=== PATIENT | female | born 1975 | race Caucasian/White ===

== ENCOUNTER 2016-08-16 16:03 | Emergency (ER) | payer BC, OTHER ==
[~2016-08-16] VITALS: Ht 157.5 cm; Wt 65.0 kg
[~2016-08-16 16:03] MED LIST: CYCL10TA6 PO; INDO-22 PO; LORA-741 PO; MULT-884 PO; NRN/100 PO
[2016-08-16 16:06] VITALS: TEMP 37; Ht 157.5 cm; Wt 65.0 kg
[2016-08-16] MEDS ORDERED: SODIUM CHLORIDE 0.9% 1000ML 1,000 ML IV STA (17:17)
[2016-08-16 17:20] VITALS: O2SAT 100
[2016-08-16 17:28] LABS: HEMATOCRIT 40.4 % (37-47); MEAN CELL VOLUME 85.8 fL (80-100); MEAN CORPUSCULAR HEMOGLOBIN 29.5 pg (25-34); MEAN CORPUSCULAR HGB CONC 34.4 g/dl (32-36); PLATELET COUNT 281 K/uL (130-400); RED BLOOD COUNT 4.71 M/uL (4.2-5.4)
[2016-08-16 17:33] LABS: INR 1.1 (0.9-1.1); PARTIAL THROMBOPLASTIN RATIO 1.2; PROTHROMBIN TIME (PATIENT) 11.3 SECONDS (9.0-12.0)
--- NOTE | 2016-08-16 17:33 | EMERGENCY ROOM VISIT NOTE ---
History Report prepared by Eliana: Graham Marvin Under the Supervision of: Dr. Shashi Carl D.O. First contact with patient: 17:08 Chief Complaint: CARDIAC ASSESSMENT Stated Complaint: CHEST TIGHTNESS INTO BACK, ARMS SORE Nursing Triage Summary: "I called the nurse line and was told to come to the ER. I have chest pain and throat discomfort, started approx 1-2 hours ago. I went to the walk in yesterday because of my throat yesterday." per pt. The chest pain comes and goes, none currently. History of Present Illness The patient is a 40 year old female who presents to the Emergency Room with complaints of persistent chest discomfort since yesterday afternoon. The patient complains of feeling lightheaded, weak and fatigued yesterday. She took a nap and when she woke up she complained of a headache and difficulty seeing out of her right eye. The chest discomfort worsened throughout the day and she went to bed trying to "sleep it off." When the patient woke up today, she notes that the chest discomfort was still there and worse. The patient also describes a discomfort in her shoulders that was radiating down both of her arms. She describes it as feeling like something that is stuck in her chest and feeling like pressure. Her symptoms were worsened with exertion and deep breathing. She also notes that when the discomfort was worsened, she felt the discomfort radiating to her back. The patient was put on antibiotics 5 days ago because she had cold-like symptoms for a few weeks. The patient also notes cramping in her legs, but denies pain or swelling at this time. Source of History: patient Onset: yesterday afternoon Position: chest Quality: pressure Timing: other (persistent) Modifying Factors (Worsening): exertion, breathing (deep breaths) Associated Symptoms: + back pain, + fatigue, + headache, + weakness Note: Other associated symptoms: lightheadedness, vision changes in right eye, discomfort in her shoulders radiating down her arms, cramping in legs Denies: pain or swelling in legs Review of Systems See HPI for pertinent positives & negatives. A total of 10 systems reviewed and were otherwise negative. Past Medical & Surgical Medical Problems: (1) Asthma, Unspecified (2) Esophageal Reflux (3) Migraine Surgical Problems: (1) H/O dilation and curettage Family History FH: diabetes mellitus FH: heart disease Social History Smoking Status: Never Smoker Alcohol Use: none Drug Use: none Marital Status: Housing Status: lives with family Current/Historical Medications Scheduled Amoxicillin (Amoxil), 500 MG PO TID Cyclobenzaprine HCl (Cyclobenzaprine HCl), 10 MG PO HS Multiple Vitamin (Multi Vitamin Daily), 1 TAB PO DAILY Scheduled PRN Lorazepam (Lorazepam), 0.5 MG PO Q8-12 HRS PRN for Anxiety Nitroglycerin (Nitrostat), 0.3 MG SL UD PRN for Chest Pain Allergies Coded Allergies: Sumatriptan (Verified Allergy, Mild, 04/05/14) Azithromycin (Verified Allergy, Unknown, cardiac, 04/05/14) Erythromycin (Verified Allergy, Unknown, 04/05/14) Serotonin (Unverified Allergy, Unknown, Uncoded allergy for "serotoninagonis", 04/05/14) Aspirin (Verified Adverse Reaction, Mild, UPSET STOMACH, 04/05/14) Cephalosporins (Verified Adverse Reaction, Mild, KEFLEX=VOMITING, HAS HAD AMOXICILLIN WITHOUT A PROBLEM, 04/05/14) Physical Exam Vital Signs Date Time Temp Pulse Resp B/P Pulse Ox O2 Delivery O2 Flow Rate FiO2 08/16/16 19:54 84 16 104/66 100 Room Air 08/16/16 18:57 87 16 113/68 100 Room Air 08/16/16 17:51 93 20 117/71 100 Room Air 08/16/16 17:20 100 Room Air 08/16/16 17:18 115 08/16/16 17:18 100 Room Air 08/16/16 16:06 37.0 140 20 121/80 99 Room Air Physical Exam GENERAL: Patient is awake alert in no acute distress patient is resting comfortably and showing no signs of anxiety EYES: The conjunctivae are clear. The pupils are round and reactive. EARS, NOSE, MOUTH AND THROAT: The nose is without any evidence of any deformity. Mucous membranes are moist tongue is midline NECK: The neck is nontender and supple. RESPIRATORY: Normal respiratory effort is noted there is no evidence of wheezing rhonchi or rales CARDIOVASCULAR: Heart sounds were tachycardic but regular. No definite murmurs appreciated. GASTROINTESTINAL: The abdomen is soft. Bowel sounds are present in all quadrants. Abdomen is nontender MUSCULOSKELETAL/EXTREMITIES: There is no evidence of gross deformity full range of motion is noted in the hips and shoulders SKIN: There is no obvious evidence of any rash. There are no petechiae, pallor or cyanosis noted. NEUROLOGIC: Patient is awake alert and oriented x3 strength is symmetric patellar reflexes are 2+ bilaterally Medical Decision & Procedures ER Provider Diagnostic Interpretation: Radiology results as stated below per my review and radiologist interpretation: CHEST ONE VIEW PORTABLE CLINICAL HISTORY: Respiratory distress. Dyspnea. COMPARISON STUDY: Chest radiograph January 02, 2016. FINDINGS: Lung volumes are normal. There is no pneumothorax or pleural effusion. Cardiac size is normal. Mediastinal contours are normal. There is no evidence of pulmonary edema. Interstitial prominence is unchanged. IMPRESSION: No acute cardiopulmonary findings. Electronically signed by: Erasmo Laws M.D. 08/16/2016 5:41 PM Dictated Date/Time: 08/16/2016 5:[address] ANGIOGRAPHY OF THE CHEST, PULMONARY EMBOLUS PROTOCOL CLINICAL HISTORY: Chest pain. Chest tightness radiating into back. COMPARISON STUDY: Chest CT May 19, 2010 and chest radiograph performed earlier today. TECHNIQUE: Following IV administration of 87 mL of Optiray-320, helical axial images of the chest were obtained utilizing the pulmonary embolus protocol. Maximal intensity projections and sagittal and coronal reformats were viewed on an independent 3D workstation. IV contrast was administered without complication. CT DOSE: 189.81 mGy.cm FINDINGS: No pulmonary emboli are identified. There is no evidence of thoracic aortic dissection. The size of the heart is normal. There is no pericardial effusion. There is a small hiatal hernia. No enlarged thoracic lymph nodes are present. There are no areas of consolidation to suggest pneumonia. Central airways are patent. No pneumothorax or pleural effusion is present. The bony thorax and upper abdomen are unremarkable. IMPRESSION: 1. No pulmonary emboli identified. 2. No acute intrathoracic findings. Electronically signed by: Erasmo Laws M.D. 08/16/2016 6:38 PM Dictated Date/Time: 08/16/2016 6:33 PM Laboratory Results 08/16/16 17:15 Red Blood Count 4.71, Mean Corpuscular Volume 85.8, Mean Corpuscular Hemoglobin 29.5, Mean Corpuscular Hemoglobin Concent 34.4, Mean Platelet Volume 9.0, Neutrophils (%) (Auto) 74.3, Lymphocytes (%) (Auto) 19.5, Monocytes (%) (Auto) 4.4, Eosinophils (%) (Auto) 1.3, Basophils (%) (Auto) 0.3, Neutrophils # (Auto) 6.99, Lymphocytes # (Auto) 1.83, Monocytes # (Auto) 0.41, Eosinophils # (Auto) 0.12, Basophils # (Auto) 0.03 08/16/16 17:15 Test 08/16/16 17:15 08/16/16 17:29 08/16/16 17:40 White Blood Count 9.40 K/uL (4.8-10.8) Red Blood Count 4.71 M/uL (4.2-5.4) Hemoglobin 13.9 g/dL (12.0-16.0) Hematocrit 40.4 % (37-47) Mean Corpuscular Volume 85.8 fL (80-100) Mean Corpuscular Hemoglobin 29.5 pg (25-34) Mean Corpuscular Hemoglobin Concent 34.4 g/dl (32-36) Platelet Count 281 K/uL (130-400) Mean Platelet Volume 9.0 fL (7.4-10.4) Neutrophils (%) (Auto) 74.3 % Lymphocytes (%) (Auto) 19.5 % Monocytes (%) (Auto) 4.4 % Eosinophils (%) (Auto) 1.3 % Basophils (%) (Auto) 0.3 % Neutrophils # (Auto) 6.99 K/uL (1.4-6.5) Lymphocytes # (Auto) 1.83 K/uL (1.2-3.4) Monocytes # (Auto) 0.41 K/uL (0.11-0.59) Eosinophils # (Auto) 0.12 K/uL (0-0.5) Basophils # (Auto) 0.03 K/uL (0-0.2) RDW Standard Deviation 37.1 fL (36.4-46.3) RDW Coefficient of Variation 11.9 % (11.5-14.5) Immature Granulocyte % (Auto) 0.2 % Immature Granulocyte # (Auto) 0.02 K/uL (0.00-0.02) Red Blood Cell Morphology Unremarkable Prothrombin Time 11.3 SECONDS (9.0-12.0) Prothromb Time International Ratio 1.1 (0.9-1.1) Activated Partial Thromboplast Time 30.3 SECONDS (21.0-31.0) Partial Thromboplastin Ratio 1.2 Anion Gap 7.0 mmol/L (3-11) Est Creatinine Clear Calc Drug Dose 113.3 ml/min Estimated GFR () 133.8 Estimated GFR (Non- 115.5 BUN/Creatinine Ratio 20.8 (10-20) Calcium Level 9.1 mg/dl (8.5-10.1) Total Bilirubin 0.4 mg/dl (0.2-1) Aspartate Amino Transf (AST/SGOT) 13 U/L (15-37) Alanine Aminotransferase (ALT/SGPT) 20 U/L (12-78) Alkaline Phosphatase 92 U/L (45-117) Total Creatine Kinase 78 U/L (26-192) Creatine Kinase MB < 0.5 ng/ml (0.5-3.6) Creatine Kinase MB Ratio (0-3.0) Troponin I < 0.015 ng/ml (0-0.045) Total Protein 8.3 gm/dl (6.4-8.2) Albumin 4.0 gm/dl (3.4-5.0) Globulin 4.3 gm/dl (2.5-4.0) Albumin/Globulin Ratio 0.9 (0.9-2) Human Chorionic Gonadotropin, Qual NEG (NEG) Bedside D-Dimer > 450 ng/mlFEU (0-450) Urine Color YELLOW Urine Appearance CLEAR (CLEAR) Urine pH 5.0 (4.5-7.5) Urine Specific [place] 1.023 (1.000-1.030) Urine Protein NEG (NEG) Urine Glucose (UA) NEG (NEG) Urine Ketones 1+ (NEG) Urine Occult Blood NEG (NEG) Urine Nitrite NEG (NEG) Urine Bilirubin NEG (NEG) Urine Urobilinogen NEG (NEG) Urine Leukocyte Esterase NEG (NEG) Laboratory results per my review. Medications Administered Medications (Trade) Dose Ordered Sig/Ya Route Start Time Stop Time Status Last Admin Dose Admin Sodium Chloride (Nss 1000ml) 1,000 ml @ 999 mls/hr Q1H1M STAT IV 08/16/16 17:17 08/16/16 18:17 DC 08/16/16 17:37 999 MLS/HR ECG Indication: chest pain Rate (beats per minute): 113 Rhythm: sinus tachycardia Findings: ST depression (Anterolateral), no ectopy Change: no significant change (when compared to January 02, 2016) ED Course 1714: The patient was evaluated in room C4. A complete history and physical examination were performed. 1717: Ordered NSS 1000 ml @ 999 mls/hr IV. 1933: Upon reevaluation, the patient is resting. I discussed the results and treatment plan with her. She verbalized agreement of the treatment plan. The patient was discharged home. Medical Decision Differential diagnosis: Etiologies such as cardiac ischemia, aortic dissection, pulmonary embolism, pneumonia, pneumothorax, musculoskeletal, infections, pericarditis, myocarditis , esophageal rupture, gastrointestinal, as well as others were entertained. Nursing notes reviewed. The patient is a 31-year-old female presents emergency department for evaluation of chest pain. The patient was found have sinus tachycardia on her EKG. There was no significant change from her previous EKG. Her cardiac biomarkers were negative but her d-dimer came back elevated which led to a CT the chest been performed. The patient did not have any definite signs of thromboembolic disease on CAT scan. I discussed the patient's laboratory and radiographic studies with her. She was encouraged to rest and avoid any strenuous activity. She was encouraged to continue all medications as prescribed. She was also encouraged to return to the emergency apartment immediately if symptoms change worsen or the need arises. Otherwise she was encouraged to follow-up with your family for further evaluation and possible further studies. Impression Primary Impression: Retrosternal chest pain Scribe Attestation The scribe's documentation has been prepared under my direction and personally reviewed by me in its entirety. I confirm that the note above accurately reflects all work, treatment, procedures, and medical decision making performed by me Departure Information Dispostion Home / Self-Care Referrals Ayesha Quezada D.O. (PCP) Forms IMPORTANT VISIT INFORMATION Patient Instructions ED Chest Pain Angina Stable, My [facility] Additional Instructions Continue all medications as prescribed. Rest and avoid any strenuous activity. Call your primary care physician in the morning to schedule follow-up appointment. Return to the emergency department immediately if symptoms change worsen or the need arises.
[2016-08-16 17:41] LABS: ALT/SGPT 20 U/L (12-78); BLOOD UREA NITROGEN 12 mg/dl (7-18); BUN/CREATININE RATIO 20.8 (10-20); CALCIUM 9.1 mg/dl (8.5-10.1); CARBON DIOXIDE 28 mmol/L (21-32); CHLORIDE 102 mmol/L (98-107); CREATININE 0.59 mg/dl (0.60-1.20); GLUCOSE 97 mg/dl (70-99); POTASSIUM 3.2 mmol/L (3.5-5.1); SODIUM 137 mmol/L (136-145)
[2016-08-16 17:43] LABS: PREG INTERNAL NEGATIVE QC NEG CLEAR BACKGROUND; PREG INTERNAL POSITIVE QC POS CONTROL LINE
--- NOTE | 2016-08-16 17:43 | DIAGNOSTIC IMAGING REPORT ---
CHEST ONE VIEW PORTABLE CLINICAL HISTORY: Respiratory distress. Dyspnea. COMPARISON STUDY: Chest radiograph January 02, 2016. FINDINGS: Lung volumes are normal. There is no pneumothorax or pleural effusion. Cardiac size is normal. Mediastinal contours are normal. There is no evidence of pulmonary edema. Interstitial prominence is unchanged. IMPRESSION: No acute cardiopulmonary findings. Electronically signed by: Erasmo Laws M.D. 08/16/2016 5:41 PM Dictated Date/Time: 08/16/2016 5:41 PM
[2016-08-16] MEDS ORDERED: OPTIRAY 320 IV PRN (17:45)
[2016-08-16 17:52] LABS: URINE APPEARANCE CLEAR (CLEAR); URINE BILIRUBIN NEG (NEG); URINE COLOR YELLOW; URINE NITRITE NEG (NEG); URINE SPECIFIC GRAVITY 1.023 (1.000-1.030); UROBILINOGEN NEG (NEG)
[2016-08-16 17:54] LABS: MANUAL MICROSCOPIC REQUIRED? NO; REVIEW REQ? NO
[2016-08-16 17:59] LABS: ALB/GLOB RATIO 0.9 (0.9-2); ALKALINE PHOSPHATASE 92 U/L (45-117); AST/SGOT 13 U/L (15-37)
[2016-08-16 18:13] LABS: BASO % 0.3 %; BASO ABS # 0.03 K/uL (0-0.2); COMPLETE YES; EOS % 1.3 %; IG% 0.2 %; LYMPH % 19.5 %; LYMPH ABS # 1.83 K/uL (1.2-3.4); MONO % 4.4 %; NEUT % 74.3 %
[2016-08-16] MEDS ORDERED: ATV5X PO (18:19)
[2016-08-16] MEDS ORDERED: AMOX500C3 PO (18:19)
[2016-08-16] MEDS ORDERED: FLX10 PO (18:19)
--- NOTE | 2016-08-16 18:39 | DIAGNOSTIC IMAGING REPORT ---
CT ANGIOGRAPHY OF THE CHEST, PULMONARY EMBOLUS PROTOCOL CLINICAL HISTORY: Chest pain. Chest tightness radiating into back. COMPARISON STUDY: Chest CT May 19, 2010 and chest radiograph performed earlier today. TECHNIQUE: Following IV administration of 87 mL of Optiray-320, helical axial images of the chest were obtained utilizing the pulmonary embolus protocol. Maximal intensity projections and sagittal and coronal reformats were viewed on an independent 3D workstation. IV contrast was administered without complication. CT DOSE: 189.81 mGy.cm FINDINGS: No pulmonary emboli are identified. There is no evidence of thoracic aortic dissection. The size of the heart is normal. There is no pericardial effusion. There is a small hiatal hernia. No enlarged thoracic lymph nodes are present. There are no areas of consolidation to suggest pneumonia. Central airways are patent. No pneumothorax or pleural effusion is present. The bony thorax and upper abdomen are unremarkable. IMPRESSION: 1. No pulmonary emboli identified. 2. No acute intrathoracic findings. Electronically signed by: Erasmo Laws M.D. 08/16/2016 6:38 PM Dictated Date/Time: 08/16/2016 6:33 PM
[2016-08-16] MEDS ORDERED: NTRSL3 SL (19:04)
[2016-08-16 19:54] VITALS: BP 104/66; PULSE 84; O2SAT 100
[2016-10-19] MEDS ORDERED: ONDA4TAB65 PO (13:48)
[2016-10-19] MEDS ORDERED: FRCT/ PO (13:48)
[2016-10-19] MEDS ORDERED: KETO10TA PO (13:48)
== END 2016-08-16 20:08 | disposition home or self-care (01) ==
LOC: C.EDB 16:05 → C.EDC 20:08
DX: R07.2 Precordial pain (principal); J45.909 Unspecified asthma, uncomplicated; K21.9 Gastro-esophageal reflux disease without esophagitis; Z82.49 Family history of ischemic heart disease and other diseases of the circulatory system

== ENCOUNTER 2017-01-07 07:24 | Emergency (ER) | payer BC, OTHER ==
[~2017-01-07] VITALS: Ht 160 cm; Wt 65.5 kg
[~2017-01-07 07:24] MED LIST changes: +ATV5X PO; -CYCL10TA6 PO; +FLX10 PO; +FRCT/ PO; -INDO-22 PO; +KETO10TA PO; -LORA-741 PO; -NRN/100 PO; +NTRSL3 SL; +ONDA4TAB65 PO
[2017-01-07 07:32] VITALS: TEMP 37.1; Ht 160 cm; Wt 65.5 kg
[2017-01-07] MEDS ORDERED: PRED10TA PO (08:06)
[2017-01-07] MEDS ORDERED: PROCHLORPERAZINE 5 MG/ML 2 ML VIAL IM STA (08:09)
[2017-01-07] MEDS ORDERED: DiphenhydrAMINE HCL 50 MG/ML VIAL IV STA (08:09)
[2017-01-07] MEDS ORDERED: SODIUM CHLORIDE 0.9% 1000ML 1,000 ML IV STA (08:09)
[2017-01-07] MEDS ORDERED: KETOROLAC TROMETHAMINE 30 MG/ML VIAL IV STA (08:09)
[2017-01-07] MEDS ORDERED: DEXAMETHASONE SOD INJ 10 MG/ML VIAL IV ONE (08:15)
[2017-01-07 08:52] LABS: BASO % 0.2 %; BASO ABS # 0.02 K/uL (0-0.2); COMPLETE YES; HEMATOCRIT 40.5 % (37-47); IG% 0.3 %; LYMPH % 11.1 %; LYMPH ABS # 1.31 K/uL (1.2-3.4); MEAN CELL VOLUME 88.8 fL (80-100); MEAN CORPUSCULAR HEMOGLOBIN 29.8 pg (25-34); MEAN CORPUSCULAR HGB CONC 33.6 g/dl (32-36); MEAN PLATELET VOLUME 9.2 fL (7.4-10.4); MONO % 5.7 %; NEUT % 82.7 %; PLATELET COUNT 290 K/uL (130-400); RED BLOOD COUNT 4.56 M/uL (4.2-5.4); WHITE BLOOD COUNT 11.85 K/uL (4.8-10.8)
--- NOTE | 2017-01-07 09:03 | DIAGNOSTIC IMAGING REPORT ---
CT HEAD WITHOUT CONTRAST (CT) CLINICAL HISTORY: Severe persistent headache COMPARISON STUDY: No previous studies for comparison. TECHNIQUE: Axial CT of the brain is performed from the vertex to the skull base. IV contrast was not administered for this examination. A dose lowering technique was utilized adhering to the principles of ALARA. CT DOSE: 638.56 mGycm FINDINGS: No intra or extra-axial mass lesions are visualized. There is no CT evidence of acute cortical infarction. There is no evidence of midline shift. There is no acute hemorrhage. No calvarial fractures are visualized. There is no evidence of pathologic ventricular dilatation. There is no evidence of acute sinusitis IMPRESSION: Normal noncontrast head CT. Electronically signed by: Jeff Lea M.D. 01/07/2017 9:01 AM Dictated Date/Time: 01/07/2017 9:00 AM
--- NOTE | 2017-01-07 09:08 | DIAGNOSTIC IMAGING REPORT ---
CERVICAL SPINE W/O CT DOSE: 466.95 mGycm HISTORY: 41-year-old female presents with acute headache and neck pain. Patient complains of migraine without reported trauma. TECHNIQUE: Multiple axial CT images of the cervical spine were obtained without contrast. A dose lowering technique was utilized adhering to the principles of ALARA. COMPARISON: MRI of the brain 08/19/2015. FINDINGS: Vertebral body heights and alignment are normal. No fracture or subluxation is identified. The intervertebral disc spaces are preserved. No significant central canal or neural foraminal stenosis is identified. There is straightening of the normal cervical lordosis. The cervical soft tissues appear unremarkable. The visualized lung apices appear clear. IMPRESSION: 1. No acute cervical spine fracture or dislocation. 2. No significant degenerative changes, central canal or foraminal narrowing identified. 3. Mild straightening of the normal cervical lordosis may be attributed to positioning or paraspinal muscle spasm. The above report was generated using voice recognition software. It may contain grammatical, syntax or spelling errors. Electronically signed by: Davin Deluca M.D. 01/07/2017 9:07 AM Dictated Date/Time: 01/07/2017 9:00 AM
[2017-01-07 09:10] LABS: BUN/CREATININE RATIO 20.2 (10-20); CALCIUM 8.7 mg/dl (8.5-10.1); CREATININE 0.63 mg/dl (0.60-1.20); POTASSIUM 3.2 mmol/L (3.5-5.1)
[2017-01-07 11:36] LABS: PREG INTERNAL NEGATIVE QC NEG CLEAR BACKGROUND; PREG INTERNAL POSITIVE QC POS CONTROL LINE
[2017-01-07 12:04] LABS: LYME DISEASE AB IGG NEG (NEG)
[2017-01-07 12:08] LABS: LYME DISEASE AB IGM EQUIVOCAL (NEG)
--- NOTE | 2017-01-07 12:50 | EMERGENCY ROOM VISIT NOTE ---
History Report prepared by Eliana: Marlene Swanson Under the Supervision of: Dr. Kavon Alves D.O. First contact with patient: 07:50 Chief Complaint: HEADACHE Stated Complaint: INTENSE MIGRAINE, NECK PAIN, NAUSEA History of Present Illness The patient is a 41 year old female who presents to the Emergency Room with complaints of persistent headache starting yesterday. She describes the pain as a pressure in her head. She has a lump in the back of her neck which she has seen her doctor for. She was told that it was some tense muscle and was told to massage it. Yesterday evening, she started having some neck pain. She was massaging her neck when pain shot up through her head and she started feeling the pressure. She also reports nausea. She has a history of migraines. She notes that her headache feels similar to a headache she experienced after having a lumbar puncture. Source of History: patient, spouse/significant other Onset: yesterday Position: head Quality: pressure Timing: other (persistent) Associated Symptoms: + neck pain, + nausea Review of Systems See HPI for pertinent positives & negatives. A total of 10 systems reviewed and were otherwise negative. Past Medical & Surgical Medical Problems: (1) Asthma, Unspecified (2) Esophageal Reflux (3) Migraine Surgical Problems: (1) H/O dilation and curettage Family History FH: diabetes mellitus FH: heart disease Social History Smoking Status: Never Smoker Alcohol Use: none Drug Use: none Marital Status: Housing Status: lives with family Current/Historical Medications Scheduled Cyclobenzaprine HCl (Cyclobenzaprine HCl), 10 MG PO HS Multiple Vitamin (Multi Vitamin Daily), 1 TAB PO DAILY Ondansetron Hcl (Zofran), 4 MG PO PRN Prednisone (Prednisone), 10 MG PO DIRECTED Scheduled PRN Acetamin/Butalbital/Caffeine (Fioricet), 1 TAB PO for prn Allergies Coded Allergies: Sumatriptan (Verified Allergy, Mild, 04/05/14) Azithromycin (Verified Allergy, Unknown, cardiac, 04/05/14) Erythromycin (Verified Allergy, Unknown, 04/05/14) Serotonin (Unverified Allergy, Unknown, Uncoded allergy for "serotoninagonis", 04/05/14) Aspirin (Verified Adverse Reaction, Mild, UPSET STOMACH, 04/05/14) Cephalosporins (Verified Adverse Reaction, Mild, KEFLEX=VOMITING, HAS HAD AMOXICILLIN WITHOUT A PROBLEM, 04/05/14) Doxycycline (Unverified Adverse Reaction, Unknown, UNKNOWN, 01/07/17) Physical Exam Vital Signs Date Time Temp Pulse Resp B/P (MAP) Pulse Ox O2 Delivery O2 Flow Rate FiO2 01/07/17 12:41 81 18 106/63 98 Room Air 01/07/17 10:13 126/69 01/07/17 09:15 107/65 01/07/17 07:32 37.1 104 18 116/67 100 Room Air Physical Exam CONSTITUTIONAL/VITAL SIGNS: Reviewed / noted above. GENERAL: Non-toxic in appearance. INTEGUMENTARY: Warm, dry, and [place]. HEAD: Normocephalic. EYES: without scleral icterus or trauma. ENT/OROPHARYNX: clear and moist. LYMPHADENOPATHY/NECK: Is supple without lymphadenopathy or meningismus. Mild tenderness to palpation of the right cervical paraspinal musculature, no other abnormality appreciated. RESPIRATORY: Lungs clear and equal. CARDIOVASCULAR: Regular rate and rhythm. GI/ABDOMEN: Soft and nontender. No organomegaly or pulsatile mass. No rebound or guarding. Normal bowel sounds. EXTREMITIES: Warm and well perfused. BACK: No CVA tenderness. NEUROLOGICAL: Intact without focal deficits. PSYCHIATRIC: normal affect. MUSCULOSKELETAL: Normally developed with good muscle tone. Medical Decision & Procedures ER Provider Diagnostic Interpretation: Radiology results as stated below per my review and radiologist interpretation: CT HEAD WITHOUT CONTRAST (CT) CLINICAL HISTORY: Severe persistent headache COMPARISON STUDY: No previous studies for comparison. TECHNIQUE: Axial CT of the brain is performed from the vertex to the skull base. IV contrast was not administered for this examination. A dose lowering technique was utilized adhering to the principles of ALARA. CT DOSE: 638.56 mGycm FINDINGS: No intra or extra-axial mass lesions are visualized. There is no CT evidence of acute cortical infarction. There is no evidence of midline shift. There is no acute hemorrhage. No calvarial fractures are visualized. There is no evidence of pathologic ventricular dilatation. There is no evidence of acute sinusitis IMPRESSION: Normal noncontrast head CT. Electronically signed by: Jeff Lea M.D. 01/07/2017 9:01 AM Dictated Date/Time: 01/07/2017 9:00 AM CERVICAL SPINE W/O CT DOSE: 466.95 mGycm HISTORY: 41-year-old female presents with acute headache and neck pain. Patient complains of migraine without reported trauma. TECHNIQUE: Multiple axial CT images of the cervical spine were obtained without contrast. A dose lowering technique was utilized adhering to the principles of ALARA. COMPARISON: MRI of the brain 08/19/2015. FINDINGS: Vertebral body heights and alignment are normal. No fracture or subluxation is identified. The intervertebral disc spaces are preserved. No significant central canal or neural foraminal stenosis is identified. There is straightening of the normal cervical lordosis. The cervical soft tissues appear unremarkable. The visualized lung apices appear clear. IMPRESSION: 1. No acute cervical spine fracture or dislocation. 2. No significant degenerative changes, central canal or foraminal narrowing identified. 3. Mild straightening of the normal cervical lordosis may be attributed to positioning or paraspinal muscle spasm. The above report was generated using voice recognition software. It may contain grammatical, syntax or spelling errors. Electronically signed by: Davin Deluca M.D. 01/07/2017 9:07 AM Dictated Date/Time: 01/07/2017 9:00 AM Laboratory Results 01/07/17 08:35 Red Blood Count 4.56, Mean Corpuscular Volume 88.8, Mean Corpuscular Hemoglobin 29.8, Mean Corpuscular Hemoglobin Concent 33.6, Mean Platelet Volume 9.2, Neutrophils (%) (Auto) 82.7, Lymphocytes (%) (Auto) 11.1, Monocytes (%) (Auto) 5.7, Eosinophils (%) (Auto) 0.0, Basophils (%) (Auto) 0.2, Neutrophils # (Auto) 9.81, Lymphocytes # (Auto) 1.31, Monocytes # (Auto) 0.67, Eosinophils # (Auto) 0.00, Basophils # (Auto) 0.02 01/07/17 08:35 Test 01/07/17 08:35 White Blood Count 11.85 K/uL (4.8-10.8) Red Blood Count 4.56 M/uL (4.2-5.4) Hemoglobin 13.6 g/dL (12.0-16.0) Hematocrit 40.5 % (37-47) Mean Corpuscular Volume 88.8 fL (80-100) Mean Corpuscular Hemoglobin 29.8 pg (25-34) Mean Corpuscular Hemoglobin Concent 33.6 g/dl (32-36) Platelet Count 290 K/uL (130-400) Mean Platelet Volume 9.2 fL (7.4-10.4) Neutrophils (%) (Auto) 82.7 % Lymphocytes (%) (Auto) 11.1 % Monocytes (%) (Auto) 5.7 % Eosinophils (%) (Auto) 0.0 % Basophils (%) (Auto) 0.2 % Neutrophils # (Auto) 9.81 K/uL (1.4-6.5) Lymphocytes # (Auto) 1.31 K/uL (1.2-3.4) Monocytes # (Auto) 0.67 K/uL (0.11-0.59) Eosinophils # (Auto) 0.00 K/uL (0-0.5) Basophils # (Auto) 0.02 K/uL (0-0.2) RDW Standard Deviation 38.4 fL (36.4-46.3) RDW Coefficient of Variation 11.9 % (11.5-14.5) Immature Granulocyte % (Auto) 0.3 % Immature Granulocyte # (Auto) 0.04 K/uL (0.00-0.02) Erythrocyte Sedimentation Rate 6 mm/hr (0-21) Anion Gap 5.0 mmol/L (3-11) Est Creatinine Clear Calc Drug Dose 108.0 ml/min Estimated GFR () 130.0 Estimated GFR (Non- 112.2 BUN/Creatinine Ratio 20.2 (10-20) Calcium Level 8.7 mg/dl (8.5-10.1) Human Chorionic Gonadotropin, Qual NEG (NEG) Lyme Disease IgG Antibody NEG (NEG) Laboratory results as stated above per my review. Medications Administered Medications (Trade) Dose Ordered Sig/Ya Route Start Time Stop Time Status Last Admin Dose Admin Ketorolac Tromethamine (Toradol Inj) 30 mg NOW STAT IV 01/07/17 08:09 01/07/17 08:12 DC 01/07/17 08:31 30 MG Sodium Chloride 1,000 ml @ 999 mls/hr Q1H1M STAT IV 01/07/17 08:09 01/07/17 09:09 DC 01/07/17 08:31 999 MLS/HR Prochlorperazine Edisylate (Compazine Inj) 10 mg NOW STAT IM 01/07/17 08:09 01/07/17 08:12 DC 01/07/17 08:30 10 MG Dexamethasone Sodium Phosphate (Decadron Inj) 10 mg NOW ONCE IV 01/07/17 08:15 01/07/17 08:16 DC 01/07/17 08:31 10 MG Diphenhydramine HCl (Benadryl Inj) 25 mg NOW STAT IV 01/07/17 08:09 01/07/17 08:12 DC 01/07/17 08:30 25 MG ED Course 0803: Previous medical records were reviewed. The patient was evaluated in room B10. A complete history and physical examination was performed. 0809: Benadryl Inj 25 mg IV, Compazine Inj 10 mg IM, NSS 1000 ml @ 999 mls/hr IV , Toradol Inj 30 mg IV. 0815: Decadron Inj 10 mg IV. 1250: On reevaluation, the patient is resting comfortably. I discussed the results and findings with the patient. She verbalized agreement of the treatment plan. She was discharged home. Medical Decision Differential includes: Acute intracranial bleed, trauma, meningitis, encephalitis, increased intracranial pressure, mass or mass effect, facial or dental infection, temporal arteritis, CVA, TIA, acute hypertensive emergency, sinusitis, carbon monoxide exposure. This is a 41-year-old female who presents to the ED with a chief complaint of a headache. The patient states that her symptoms started around 1900 hrs. last night. She also developed some nausea and vomiting and feels some discomfort in the right side of her neck. She states that there feels like there is a lump in that location. The patient's vital signs here are normal. Her physical exam reveals some tenderness to palpation of the right cervical paraspinal musculature. Her exam was otherwise unremarkable. She is afebrile. CT scan of the cervical spine and CT scan of the head did not show acute process. Sedimentation rate, CBC, PRP and tests were negative. Lyme test was equivocal. The patient was told the results. She was treated with IV Compazine, IV fluids, IV Decadron, IV Toradol and IV Benadryl. She was told to follow-up with PCP for the additional testing for Lyme. These tests are currently pending. She is feeling better on reassessment. The patient was felt to be stable for discharge. Medication Reconcilliation Current Medication List: was personally reviewed by me Blood Pressure Screening Patient's blood pressure: Normal blood pressure Blood pressure disposition: Did not require urgent referral Impression Primary Impression: Headache Additional Impression: Neck pain Scribe Attestation The scribe's documentation has been prepared under my direction and personally reviewed by me in its entirety. I confirm that the note above accurately reflects all work, treatment, procedures, and medical decision making performed by me. Departure Information Dispostion Home / Self-Care Referrals Ayesha Quezada D.O. (PCP) Patient Instructions My [facility] Additional Instructions The CT scans today did not show any significant abnormalities. Lyme test today was equivocal. Follow-up with your doctor for the tests that are currently pending. These should be back in about a week. Follow-up with your doctor for further care and evaluation in 1-2 days. Return to the emergency department for worsening or new symptoms or any concerns. You have been examined and treated today on an emergency basis only. This is not a substitute for, or an effort to provide, complete comprehensive medical care. It is impossible to recognize and treat all injuries or illnesses in a single emergency department visit. It is therefore important that you follow up closely with your doctor. Call as soon as possible for an appointment. Problem Qualifiers
[2017-01-07 13:04] VITALS: BP 106/63; PULSE 81; O2SAT 98
[2017-01-13 07:34] LABS: 18KDIGG BAND NONREACTIVE (NONREACTIVE); 23KDIGG BAND NONREACTIVE (NONREACTIVE); 23KDIGM BAND NONREACTIVE (NONREACTIVE); 28KDIGG BAND NONREACTIVE (NONREACTIVE); 30KDIGG BAND NONREACTIVE (NONREACTIVE); 39KDIGG BAND NONREACTIVE (NONREACTIVE); 39KDIGM BAND NONREACTIVE (NONREACTIVE); 41KDIGG BAND REACTIVE (NONREACTIVE); 41KDIGM BAND NONREACTIVE (NONREACTIVE); 45KDIGG BAND NONREACTIVE (NONREACTIVE); 58KDIGG BAND NONREACTIVE (NONREACTIVE); 66KDIGG BAND NONREACTIVE (NONREACTIVE); 93KDIGG BAND NONREACTIVE (NONREACTIVE)
== END 2017-01-07 13:04 | disposition home or self-care (01) ==
LOC: C.EDB 07:25
DX: R51 Headache (principal); M54.2 Cervicalgia; R22.1 Localized swelling, mass and lump, neck; J45.909 Unspecified asthma, uncomplicated; K21.9 Gastro-esophageal reflux disease without esophagitis; Z83.3 Family history of diabetes mellitus